=== PATIENT | male | born 1955 | race Caucasian/White ===

== ENCOUNTER 2017-11-28 19:01 | Inpatient (IN) ==
[2017-11-28 19:51] LABS: Basophils # 0.1 10*3/uL (0.0-0.2); Basophils % 0.9 % (0.0-0.8); Eosinophils # 0.3 10*3/uL (0.0-0.87); Eosinophils % 3.3 % (0.00-10.9); Hematocrit 42.6 VOL% (42.0-52.0); Hemoglobin 14.7 GM/DL (14.0-18.0); Immature Granulocytes % 0.3 %; Immature Granulocytes Absolute 0.03 #; Lymphocytes # 2.2 10*3/uL (1.4-4.0); Lymphocytes % 21.2 % (21.2-54.2); Mean Corpuscular HGB Conc 34.5 GM/DL (32-36); Mean Corpuscular Hemoglobin 31 PG (27-34); Mean Platelet Volume 10.9 FL (9.6-12.0); Monocytes # 1.2 10*3/uL (0.11-0.8); Monocytes % 11.4 % (1.7-12.7); Neutrophils # 6.5 10*3/uL (1.4-7.4); Neutrophils % 62.9 % (38.7-73.9); Platelet Count 184 T/CUMM (130-400); Red Blood Count 4.68 MC/CUMM (3.8-5.5); Red Cell Distribution Width 12.6 % (9.3-17.3); White Blood Count 10.3 T/CUMM (4-12)
[2017-11-28 20:14] LABS: Alanine Aminotransferase 30 U/L (16-61); Albumin 3.6 G/DL (3.4-5.0); Alkaline Phosphatase 70 U/L (45-117); Aspartate Amino Transferase 25 U/L (0-37); Bilirubin,Total < 0.39 MG/DL (0.2-1.0); Calcium 8.5 MG/DL (8.5-10.1); Total Protein 7.1 G/DL (6.4-8.3)
[2017-11-28 20:15] LABS: Blood Urea Nitrogen 55 MG/DL (7-18); CKMB % 1.8 %; Glucose 149 MG/DL (74-106); Osmolality,Calculated 300.1 MOS/KG (273-304); Potassium 3.1 MMOL/L (3.5-5.1); Sodium 142 MMOL/L (136-145); Troponin I Only 0.016 NG/ML (0.00-0.045)
[2017-11-28 20:16] LABS: PT Patient Result 10.2 SECS; Partial Thromboplastin Time 29.7 SECS (0-40)
[2017-11-28] MEDS ORDERED: POTASSIUM BICARB EFFERVESCENT 25 MEQ TABLET PO ONE (20:38)
[2017-11-28 22:45] LABS: Apearance,Urine CLEAR (Clear); Bilirubin,Urine Negative (Negative); Blood, Urine Negative (Negative); Glucose,Urine (UA) Negative (Negative); Ketones,Urine Negative (Negative); Mucus,Urine Occasional /LPF (Occasional); Nitrite,Urine Negative (Negative); Protein,Urine Negative; RBC,Urine <1 /HPF (0-4); Sperm,Urine Occasional /HPF (Negative); Urine Color Yellow (Yellow); Urine Specific Gravity 1.008 (1.001-1.035); Urine Urobilinogen < 2.0 EU/DL (0.2-1.0); WBC,Urine <1 /HPF (0-6)
[2017-11-28 23:01] LABS: Barbiturates Screen,Urine Negative (Negative); Benzodiazepines Screen,Urine Negative (Negative); Cannabinoid Screen,Urine Negative (Negative); Opiate Screen,Urine Negative (Negative); Phencyclidine Screen,Urine Negative (Negative)
[2017-11-29] MEDS ORDERED: DEXTROSE 50% 25 GM/50 ML VIAL IV PRN (02:32)
[2017-11-29] MEDS ORDERED: GLUCAGON 1 MG VIAL IM PRN (02:32)
[2017-11-29] MEDS: SODIUM CHLORIDE 0.9% 1,000 ML IV SCH ×2 (03:40→17:04)
[2017-11-29] MEDS: INSULIN LISPRO 100 UNIT/ML SUBCUT SCH ×3 (05:19→17:52)
[2017-11-29 05:33] LABS: Basophils # 0.1 10*3/uL (0.0-0.2); Eosinophils # 0.3 10*3/uL (0.0-0.87); Eosinophils % 3.7 % (0.00-10.9); Hematocrit 41.8 VOL% (42.0-52.0); Hemoglobin 14.9 GM/DL (14.0-18.0); Immature Granulocytes % 0.2 %; Immature Granulocytes Absolute 0.02 #; Lymphocytes % 22.8 % (21.2-54.2); Mean Corpuscular HGB Conc 35.6 GM/DL (32-36); Mean Corpuscular Hemoglobin 32 PG (27-34); Mean Corpuscular Volume 89.7 FL (87-102); Mean Platelet Volume 11.1 FL (9.6-12.0); Monocytes % 11.2 % (1.7-12.7); Neutrophils # 5.5 10*3/uL (1.4-7.4); Neutrophils % 61.1 % (38.7-73.9); Platelet Count 186 T/CUMM (130-400); Red Blood Count 4.66 MC/CUMM (3.8-5.5); Red Cell Distribution Width 12.6 % (9.3-17.3); White Blood Count 8.9 T/CUMM (4-12)
[2017-11-29 06:09] LABS: Albumin 3.4 G/DL (3.4-5.0); Bilirubin,Total 0.8 MG/DL (0.2-1.0); Calcium 8.4 MG/DL (8.5-10.1); Potassium 2.8 MMOL/L (3.5-5.1); Risk Ratio 2.8; Total Protein 6.6 G/DL (6.4-8.3); VLDL CHOLESTEROL 15.8 MG/DL
[2017-11-29] MEDS ORDERED: INSULIN NPH/REGULAR 70/30 100 UNIT/ML SUBCUT SCH (09:00)
[2017-11-29] MEDS ORDERED: POTASSIUM CHLORIDE 20 MEQ PACK PO SCH (09:00)
[2017-11-29] MEDS: ASPIRIN 325 MG TABLET PO SCH (09:58)
[2017-11-29] MEDS: SIMVASTATIN 20 MG TABLET PO SCH (09:58)
[2017-11-29] MEDS: POTASSIUM CHLORIDE RIDER 10 MEQ in PREMIX 1 EACH IV PRN ×5 (13:25→18:51)
[2017-11-29] MEDS ORDERED: hydrALAZINE 25 MG TABLET PO SCH (15:00)
[2017-11-29] MEDS ORDERED: CARVEDILOL 12.5 MG TABLET PO SCH (15:00)
[2017-11-29] MEDS ORDERED: ASPIRIN EC 81 MG TABLET PO SCH (15:00)
[2017-11-29] MEDS ORDERED: POTASSIUM CHLORIDE 20 MEQ TABLET PO ONE (15:30)
[2017-11-29] MEDS: hydrALAZINE 25 MG TABLET PO SCH ×2 (17:50→21:53)
[2017-11-29] MEDS: PANTOPRAZOLE 40 MG TABLET PO SCH (17:50)
[2017-11-29] MEDS: CARVEDILOL 6.25 MG TABLET PO SCH (21:53)
[2017-11-30] MEDS: INSULIN LISPRO 100 UNIT/ML SUBCUT SCH ×3 (00:17→13:55)
[2017-11-30 04:40] LABS: Basophils # 0.1 10*3/uL (0.0-0.2); Basophils % 1.1 % (0.0-0.8); Eosinophils # 0.3 10*3/uL (0.0-0.87); Eosinophils % 3.4 % (0.00-10.9); Hematocrit 43.2 VOL% (42.0-52.0); Hemoglobin 14.8 GM/DL (14.0-18.0); Immature Granulocytes % 0.2 %; Immature Granulocytes Absolute 0.02 #; Lymphocytes # 1.5 10*3/uL (1.4-4.0); Lymphocytes % 15.5 % (21.2-54.2); Mean Corpuscular HGB Conc 34.3 GM/DL (32-36); Mean Corpuscular Hemoglobin 32 PG (27-34); Mean Corpuscular Volume 92.7 FL (87-102); Mean Platelet Volume 10.5 FL (9.6-12.0); Monocytes % 10.1 % (1.7-12.7); Neutrophils # 6.8 10*3/uL (1.4-7.4); Neutrophils % 69.7 % (38.7-73.9); Platelet Count 185 T/CUMM (130-400); Red Blood Count 4.66 MC/CUMM (3.8-5.5); Red Cell Distribution Width 12.4 % (9.3-17.3); White Blood Count 9.8 T/CUMM (4-12)
[2017-11-30 05:18] LABS: Calcium 8.4 MG/DL (8.5-10.1); Osmolality,Calculated 292.1 MOS/KG (273-304); Potassium 3.6 MMOL/L (3.5-5.1)
[2017-11-30] MEDS: hydrALAZINE 25 MG TABLET PO SCH (09:17)
[2017-11-30] MEDS: ASPIRIN 325 MG TABLET PO SCH (09:17)
[2017-11-30] MEDS: PANTOPRAZOLE 40 MG TABLET PO SCH (09:18)
[2017-11-30] MEDS: SIMVASTATIN 20 MG TABLET PO SCH (09:18)
[2017-11-30] MEDS: CARVEDILOL 6.25 MG TABLET PO SCH (09:18)
[2017-11-30 12:12] VITALS: BP 140/91
== END 2017-11-30 15:22 | DRG 69 ==
LOC: N.ED 19:01 → N.EDINP 22:27 → SUATTDRO 22:27 → N.3W 23:15
PROVIDERS: ADMIT Internal Medicine; ATTEND Hospitalist